=== PATIENT | male | born 1970 ===

== ENCOUNTER 2016-11-19 10:49 | Day surgery (SDC) | payer BC ==
[2016-11-16 12:48] VITALS: BMI 30.9
[2016-11-19] MEDS ORDERED: Propofol 10 mg/ml Inj (20 ML) ONE ×2 (13:43→14:21)
[2016-11-19] MEDS ORDERED: Midazolam 2 MG/2 ML VIAL ONE (13:43)
[2016-11-19] MEDS ORDERED: Lidocaine Hydrochloride 5 ML INJ ONE (13:47)
[2016-11-19] MEDS ORDERED: Rocuronium 10 mg/ml (5 ml) ONE (13:47)
[2016-11-19] MEDS ORDERED: Lactated Ringer's 1,000 ML IV ONE ×2 (14:11→16:00)
[2016-11-19] MEDS ORDERED: Absorbable Gelatin Sponge Size 12-7 ONE (14:42)
[2016-11-19] MEDS ORDERED: ceFAZolin IV 1 gm in Dextrose 50 ML IVPB ONE (15:07)
[2016-11-19] MEDS ORDERED: Bupivacaine HCl 0.25% PF (10 ml) Inj ONE (15:07)
[2016-11-19] MEDS ORDERED: Lidocaine 1% Inj (20ml) ONE (15:07)
[2016-11-19] MEDS ORDERED: Lactated Ringer's 1,000 ML IV SCH (15:15)
[2016-11-19] MEDS ORDERED: Oxycodone/Acetaminophen 5/325 mg Tab PO PRN (15:15)
[2016-11-19] MEDS: HYDROmorphone 0.5 mg/0.5 ml ISec IVP PRN ×2 (15:34→15:45)
[2016-11-19 16:36] VITALS: BP 116/69; PULSE 67; RESP 20; TEMP 97.8; O2SAT 96
--- NOTE | 2016-11-19 17:37 | OP ---
PROCEDURE DATE: 11/19/2016 PREOPERATIVE DIAGNOSIS: Thrombosed hemorrhoids. POSTOPERATIVE DIAGNOSIS: Thrombosed hemorrhoids. PROCEDURE PERFORMED: Complex hemorrhoidectomy. SURGEON: Moses Sheehan MD ANESTHESIA: General. BLOOD LOSS: 30 mL. POSTOPERATIVE CONDITION: Stable. INDICATIONS FOR SURGERY: This is a 46-year-old male with painful thrombosed hemorrhoids, presents fo r surgical removal. GROSS FINDINGS: There was a thrombosed hemorrhoid in the right posterior position including internal and external components. A complex hemorrhoidectomy was performed. There were no other abnormal fi ndings. PROCEDURE: The patient was taken to the operating room. General anesthesia was administered. A pro ctosigmoidoscopy was carried out to 10 cm, but was limited by poor prep. No abnormal findings were f ound. Next, a rectal rectractor was placed and the right posterior hemorrhoid bundle was grasped wit h the richard clamp and ligated at its base with heavy Monocryl. An elliptical incision was made and it was completely dissected off the anal fascia and removed. Bleeding was controlled using the Bovi e. A rectal blood vessel was also repaired. Tissue flaps were raised to prevent an anal stenosis an d a running closure was performed using the heavy Monocryl. The wound was hemostatic and packed with Gelfoam. The patient tolerated the procedure well, returned to recovery room in stable condition. Moses Sheehan MD cc: [id number] TT: 11/19/2016 17:36:40 sn
== END 2016-11-19 16:51 | disposition home or self-care (01) ==
LOC: C.SDS 10:49
PROVIDERS: ATTEND Surgery
DX: K64.5 Perianal venous thrombosis (principal); Z21 Asymptomatic human immunodeficiency virus [HIV] infection status; I10 Essential (primary) hypertension; E78.5 Hyperlipidemia, unspecified; K21.9 Gastro-esophageal reflux disease without esophagitis; Z98.890 Other specified postprocedural states; Z79.899 Other long term (current) drug therapy
CPT/HCPCS: 46255; 88304; J1170; J2250; J2405; J2704; J3010; J7120